=== PATIENT | male | born 1965 | race Caucasian/White ===

== ENCOUNTER 2022-07-16 17:02 | Inpatient (IN) | payer BC ==
[2022-07-16] MEDS ORDERED: Ondansetron PF 4 MG/2 ML Vial ONE (17:39)
[2022-07-16] MEDS ORDERED: Magnesium 2 GM/50 ML BAG (IN WATER) ONE (17:39)
[2022-07-16] MEDS ORDERED: Enoxaparin Sodium 60 MG/0.6 ML SYRINGE ONE (18:02)
[2022-07-16 18:14] LABS: #Eosinphils 0.2 thou/uL (0.0-0.7); #Lymphocytes 2.6 thou/uL (1.20-3.40); #Monocytes 0.7 thou/uL (0.11-0.59); #Neutrophils 2.1 thou/uL (1.40-6.50); %Basophils 0.3 % (0.0-1.0); %Eosinophils 2.9 % (0.0-10.0); %Lymphocytes 46.1 % (21.0-51.0); %Monocytes 12.8 % (0.0-10.0); %Neutrophils 37.9 % (42.0-75.0); Hemoglobin 15.4 g/dL (14.0-18.0); Mean Platelet Volume 8.7 fL (7.4-10.4); Platelet Count 180 thou/uL (130-400); RBC Distribution Width 12.9 % (11.5-14.5); Red Blood Cell (RBC) Count 5.15 mill/uL (4.70-6.10); White Blood Cell (WBC) Count 5.5 thou/uL (4.8-10.8)
[2022-07-16] MEDS ORDERED: Metoprolol Tartrate 5 MG/5 ML VIAL ONE (18:16)
[2022-07-16 18:42] LABS: ALT (SGPT) 33 U/L (8-55); AST (SGOT) 41 U/L (5-34); Albumin 4.1 g/dL (3.5-5.0); Alkaline Phosphatase 67 U/L (40-110); Anion Gap 13 mmol/L (10-20); BUN (Urea Nitrogen) 16 mg/dL (8.4-25.7); Bilirubin, Total 0.6 mg/dL (0.2-1.2); Calc. Creatinine Clearance 0 mL/min (70-130); Calcium 8.9 mg/dL (7.8-10.44); Carbon Dioxide 23 mmol/L (22-29); Chloride 108 mmol/L (98-107); Estimated GFR 74; Globulin 4.4 g/dL (2.4-3.5); Glucose 89 mg/dL (70-105); Magnesium 2.2 mg/dL (1.6-2.6); Potassium 5.2 mmol/L (3.5-5.1); Protein, Total 8.5 g/dL (6.0-8.3); Sodium 139 mmol/L (136-145)
[2022-07-16 18:46] LABS: INR-International Normal Ratio 1.1; Prothrombin Time 14.8 sec (12.0-14.7)
[2022-07-16 18:47] LABS: PTT 40.7 sec (22.9-36.1)
[2022-07-16 18:49] LABS: D-Dimer Test 0.56 *mcg/mL (0.27-0.43)
[2022-07-16] MEDS ORDERED: Ondansetron PF 4 MG/2 ML Vial IVP PRN (21:20)
[2022-07-16] MEDS ORDERED: Acetaminophen 325 MG TAB PO PRN (21:20)
[2022-07-16 23:13] VITALS: BMI 36.6
[2022-07-17 05:17] LABS: INR-International Normal Ratio 1.1; Prothrombin Time 13.9 sec (12.0-14.7)
[2022-07-17 05:18] LABS: PTT 38.6 sec (22.9-36.1)
[2022-07-17 05:25] LABS: Anion Gap 10 mmol/L (10-20); BUN (Urea Nitrogen) 13 mg/dL (8.4-25.7); Calc. Creatinine Clearance 166 mL/min (70-130); Calcium 8.5 mg/dL (7.8-10.44); Carbon Dioxide 23 mmol/L (22-29); Chloride 109 mmol/L (98-107); Estimated GFR 100; Glucose 88 mg/dL (70-105); Magnesium 2.2 mg/dL (1.6-2.6); Potassium 3.8 mmol/L (3.5-5.1); Sodium 138 mmol/L (136-145)
[2022-07-17 06:16] LABS: Eosinophils 2 % (0-10); Hemoglobin 14.7 g/dL (14.0-18.0); Lymphocytes 59 % (21-51); MDiff Complete? YES; Mean Corpuscular HGB CONC 33.6 g/dL (32.0-36.0); Mean Corpuscular Hemoglobin 31.1 pg (27.0-31.0); Mean Corpuscular Volume 92.7 fL (78.0-98.0); Mean Platelet Volume 8.6 fL (7.4-10.4); Monocytes 5 % (0-10); Neutrophil 34 % (42-75); Platelet Count 159 thou/uL (130-400); Platelet Morphology Comment Appears Adequate; RBC Distribution Width 12.7 % (11.5-14.5); RBC Morphology Normal; Red Blood Cell (RBC) Count 4.71 mill/uL (4.70-6.10); White Blood Cell (WBC) Count 4.9 thou/uL (4.8-10.8)
[2022-07-17] MEDS ORDERED: Enoxaparin Sodium 100 MG/ML SYRINGE SC SCH (09:00)
[2022-07-17] MEDS: Metoprolol Tartrate 25 MG TAB PO SCH ×2 (09:08→20:36)
[2022-07-17] MEDS: Loratadine/Pseudoephedrine 10/240 mg Tablet PO SCH ×2 (09:08→20:36)
[2022-07-17] MEDS: Aspirin 81 mg Enteric Coated Tablet PO SCH (09:08)
[2022-07-17] MEDS ORDERED: Enoxaparin Sodium 120 MG/0.8 ML SYRINGE SC SCH (21:00)
[2022-07-18] MEDS ORDERED: PROPOFOL 20 ML ONE (08:11)
[2022-07-18] MEDS ORDERED: Promethazine HCl 25 MG/ML VIAL IM PRN (08:25)
[2022-07-18] MEDS ORDERED: Ondansetron HCl/PF 4 MG/2 ML Vial IVP PRN (08:25)
[2022-07-18] MEDS ORDERED: Promethazine HCl 25 MG/ML VIAL IVPB PRN (08:25)
[2022-07-18] MEDS ORDERED: Apixaban 5 MG TAB PO SCH (09:00)
[2022-07-18] MEDS: Aspirin 81 mg Enteric Coated Tablet PO SCH (09:42)
[2022-07-18 11:56] VITALS: BP 105/55; TEMP 98.1
== END 2022-07-18 14:35 | disposition home or self-care (01) | DRG 310 ==
LOC: ERS 17:02 → 2SW 21:07 → OBSVTOIN 07-17 14:53
PROVIDERS: ADMIT Internal Medicine; ATTEND Internal Medicine
PROC: 5A2204Z Restoration of Cardiac Rhythm, Single (ICD-10-PCS; principal; 2022-07-18)
PROC: B246ZZ4 Ultrasonography of Right and Left Heart, Transesophageal (ICD-10-PCS; 2022-07-18)
DX: I48.91 Unspecified atrial fibrillation (principal); I10 Essential (primary) hypertension; M06.9 Rheumatoid arthritis, unspecified; E87.5 Hyperkalemia; E66.9 Obesity, unspecified; I08.1 Rheumatic disorders of both mitral and tricuspid valves; Z20.822 Contact with and (suspected) exposure to COVID-19; Z79.899 Other long term (current) drug therapy; Z68.37 Body mass index [BMI] 37.0-37.9, adult
CPT/HCPCS: 36415; 71045; 80048; 80053; 83735; 83880; 84443; 84484; 85025; 85379; 85610; 85730; 92960; 93005; 93306; 93312; J1650; J2405; J2704; J3475; U0003; U0005

== ENCOUNTER 2022-09-21 19:00 | Outpatient (CLI) | payer BC | END 2022-09-21 19:01 | disposition home or self-care (01) | LOC: SLEEPLAB 19:00 | PROVIDERS: ATTEND Nurse Practitioner Family | DX: G47.33 Obstructive sleep apnea (adult) (pediatric) (principal); R06.83 Snoring; G47.10 Hypersomnia, unspecified; I10 Essential (primary) hypertension; G47.00 Insomnia, unspecified; I48.91 Unspecified atrial fibrillation; R00.1 Bradycardia, unspecified | CPT/HCPCS: 95810 ==

== ENCOUNTER 2023-01-14 19:00 | Outpatient (CLI) | payer BC | END 2023-01-14 19:01 | disposition home or self-care (01) | LOC: SLEEPLAB 19:00 | PROVIDERS: ATTEND Nurse Practitioner Family | DX: G47.33 Obstructive sleep apnea (adult) (pediatric) (principal); R53.83 Other fatigue; E66.9 Obesity, unspecified; I49.9 Cardiac arrhythmia, unspecified; R06.83 Snoring; G47.10 Hypersomnia, unspecified; Z68.36 Body mass index [BMI] 36.0-36.9, adult | CPT/HCPCS: 95811 ==

== ENCOUNTER 2023-02-24 08:36 | Day surgery (SDC) | payer BC ==
[2023-02-20 12:52] VITALS: BMI 37.5
[2023-02-24] MEDS ORDERED: Heparin 10,000 UNITS/ 10 ML VIAL ONE ×2 (09:10→12:07)
[2023-02-24] MEDS ORDERED: Protamine Sulfate 50 MG/5 ML VIAL ONE (09:10)
[2023-02-24] MEDS ORDERED: Heparin 25,000 units/D5W 500 ML ONE (09:10)
[2023-02-24] MEDS ORDERED: fentaNYL 50 mcg/mL 1 mL Vial ONE ×4 (09:35→14:51)
[2023-02-24] MEDS ORDERED: Midazolam HCl 2 mg/2 ml Vial ONE (09:36)
[2023-02-24] MEDS ORDERED: Iopamidol 370 76% 100 ML VIAL ONE (09:58)
[2023-02-24] MEDS ORDERED: Dehydrated Alcohol 99% 5 ML VIAL ONE (10:00)
[2023-02-24] MEDS ORDERED: PROPOFOL 200 MG/20 ML VIAL ONE (10:09)
[2023-02-24] MEDS ORDERED: PHENYLEPHRINE-NS 100 MCG/ML 10 ML SYRINGE ONE (10:09)
[2023-02-24] MEDS ORDERED: Dexamethasone 20 MG/5 ML VIAL ONE (10:09)
[2023-02-24] MEDS ORDERED: Lidocaine 1% PF 5 ML VIAL ONE (10:09)
[2023-02-24] MEDS ORDERED: Rocuronium Bromide 10 MG/ML (10ML VIAL) ONE (10:09)
[2023-02-24] MEDS ORDERED: Ondansetron PF 4 MG/2 ML Vial ONE (10:09)
== END 2023-02-24 16:28 | disposition home or self-care (01) ==
LOC: SDC 08:36
PROVIDERS: ATTEND Internal Medicine Cardiovascular Disease
PROC: 02583ZZ Destruction of Conduction Mechanism, Percutaneous Approach (ICD-10-PCS; principal; 2023-02-24)
PROC: 4A0234Z Measurement of Cardiac Electrical Activity, Percutaneous Approach (ICD-10-PCS; principal; 2023-02-24)
PROC: 4A023FZ Measurement of Cardiac Rhythm, Percutaneous Approach (ICD-10-PCS; principal; 2023-02-24)
PROC: 02K83ZZ Map Conduction Mechanism, Percutaneous Approach (ICD-10-PCS; principal; 2023-02-24)
PROC: B246ZZ4 Ultrasonography of Right and Left Heart, Transesophageal (ICD-10-PCS; principal; 2023-02-24)
DX: I48.19 Other persistent atrial fibrillation (principal); I08.1 Rheumatic disorders of both mitral and tricuspid valves; E78.00 Pure hypercholesterolemia, unspecified; G47.33 Obstructive sleep apnea (adult) (pediatric); Z79.01 Long term (current) use of anticoagulants; Z79.620 Long term (current) use of immunosuppressive biologic; Z79.899 Other long term (current) drug therapy
CPT/HCPCS: 85347; 93005; 93312; 93656; 93657; C1725; C1732; C1751; C1759; C1760; C1769; C1887; C1894; C2630; J1100; J1644; J2250; J2405; J2704; J2720; J3010; Q9967

== ENCOUNTER 2023-02-28 01:17 | Inpatient (IN) | payer BC ==
[2023-02-28] MEDS ORDERED: Acetaminophen 500 MG TAB ONE (01:34)
[2023-02-28] MEDS ORDERED: Cefepime 2 GM VIAL ONE (01:43)
[2023-02-28] MEDS ORDERED: Aspirin Chewable 81 MG TAB ONE (01:43)
[2023-02-28] MEDS ORDERED: Nitroglycerin 2% Ointment 1 INCH/1 GM Packet ONE (01:46)
[2023-02-28] MEDS ORDERED: Ondansetron PF 4 MG/2 ML Vial ONE (01:49)
[2023-02-28] MEDS ORDERED: Morphine 4 MG/ML VIAL ONE (01:49)
[2023-02-28 02:00] LABS: #Eosinphils 0.1 thou/uL (0.0-0.7); #Lymphocytes 1.8 thou/uL (1.20-3.40); #Monocytes 1.1 thou/uL (0.11-0.59); #Neutrophils 7.5 thou/uL (1.40-6.50); %Basophils 0.1 % (0.0-1.0); %Eosinophils 0.6 % (0.0-10.0); %Lymphocytes 17.4 % (21.0-51.0); %Monocytes 10.8 % (0.0-10.0); Hemoglobin 13.1 g/dL (14.0-18.0); Mean Corpuscular Hemoglobin 30.7 pg (27.0-31.0); Mean Corpuscular Volume 87.9 fl (78.0-98.0); Mean Platelet Volume 8.7 fL (7.4-10.4); Platelet Count 160 10x3/uL (130-400); RBC Distribution Width 12.4 % (11.5-14.5); Red Blood Cell (RBC) Count 4.25 mill/uL (4.70-6.10); White Blood Cell (WBC) Count 10.5 10x3/uL (4.8-10.8)
[2023-02-28] MEDS ORDERED: VANCOMYCIN 2 GRAM/500 ML BAG 2 GM in Premix Bag 1 BAG IVPB SCH (02:00)
[2023-02-28 02:16] LABS: ALT (SGPT) 40 U/L (8-55); AST (SGOT) 35 U/L (5-34); Alkaline Phosphatase 73 U/L (40-110); Anion Gap 13 mmol/L (10-20); BUN (Urea Nitrogen) 12 mg/dL (8.4-25.7); Bilirubin, Total 0.6 mg/dL (0.2-1.2); Calc. Creatinine Clearance 0 mL/min (70-130); Calcium 8.8 mg/dL (7.8-10.44); Carbon Dioxide 22 mmol/L (22-29); Chloride 103 mmol/L (98-107); Estimated GFR 70; Globulin 3.8 g/dL (2.4-3.5); Glucose 152 mg/dL (70-105); Potassium 3.7 mmol/L (3.5-5.1); Protein, Total 7.8 g/dL (6.0-8.3); Sodium 134 mmol/L (136-145)
[2023-02-28 02:42] LABS: SARS-CoV-2 NAA Rapid Test Not Detected (NotDetected)
[2023-02-28 02:51] LABS: CKMB 0.5 ng/mL (0-6.6)
[2023-02-28 03:00] LABS: INR-International Normal Ratio 1.2; Prothrombin Time 15.6 sec (12.0-14.7)
[2023-02-28 03:01] LABS: PTT 32.6 sec (22.9-36.1)
[2023-02-28 04:31] VITALS: BMI 38.9
[2023-02-28] MEDS ORDERED: Ondansetron ODT 4 MG TAB PO PRN (05:02)
[2023-02-28] MEDS ORDERED: Calcium Carbonate 500 MG ChewTAB PO PRN (05:02)
[2023-02-28 05:14] LABS: Critical Call Chem Troponin I RESULT DECREASING; Troponin I 0.603 ng/mL (< 0.028)
[2023-02-28] MEDS: Acetaminophen 325 MG TAB PO PRN ×3 (05:53→21:02)
[2023-02-28 08:13] LABS: Critical Call Chem Troponin I RESULT DECREASING; Troponin I 0.492 ng/mL (< 0.028)
[2023-02-28] MEDS: Rosuvastatin 20 MG TAB PO SCH (08:52)
[2023-02-28] MEDS: Dronedarone HCl 400 MG TAB PO SCH ×2 (08:55→16:51)
[2023-02-28] MEDS: Apixaban 5 MG TAB PO SCH ×2 (08:55→21:02)
[2023-02-28] MEDS: Famotidine 20 MG TAB PO SCH ×2 (08:56→21:02)
[2023-02-28] MEDS ORDERED: Vancomycin 1.5 GRAM/300 ML BAG IVPB SCH (09:00)
[2023-02-28] MEDS: cefTRIAXone\\ROCEPHIN 2 GM in Sodium Chloride 0.9% 100 ML IVPB SCH (09:52)
[2023-02-28] MEDS ORDERED: Iopamidol 370 76% 100 ML VIAL ONE (12:10)
[2023-02-28] MEDS: VANCOMYCIN 2 GRAM/500 ML BAG 2 GM in Premix Bag 1 BAG IVPB SCH (14:47)
[2023-02-28] MEDS: Senokot S 8.6-50 MG TAB PO PRN (16:51)
[2023-03-01] MEDS ORDERED: Sodium Chloride 0.9% 250 ML IV SCH (00:15)
[2023-03-01] MEDS ORDERED: Sodium Chloride 0.9% 250 ML 250 ML IV SCH (00:45)
[2023-03-01] MEDS: VANCOMYCIN 2 GRAM/500 ML BAG 2 GM in Premix Bag 1 BAG IVPB SCH ×2 (03:05→13:46)
[2023-03-01 05:15] LABS: BUN (Urea Nitrogen) 8 mg/dL (8.4-25.7); Calc. Creatinine Clearance 172 mL/min (70-130); Calcium 8.6 mg/dL (7.8-10.44); Carbon Dioxide 13 mmol/L (22-29); Chloride 110 mmol/L (98-107); Estimated GFR 97; Glucose 84 mg/dL (70-105); Magnesium 2.1 mg/dL (1.6-2.6); Potassium 4.4 mmol/L (3.5-5.1); Sodium 134 mmol/L (136-145)
[2023-03-01 05:20] LABS: Anion Gap 15 mmol/L (10-20)
[2023-03-01 07:53] LABS: Eosinophils 1 % (0-10); Hypochromia SLIGHT = 6-15 cells (100X) (0-5/hpf); Lymphocytes 22 % (21-51); MDiff Complete? YES; Mean Corpuscular HGB CONC 30.3 g/dL (32.0-36.0); Mean Corpuscular Hemoglobin 28.9 pg (27.0-31.0); Mean Corpuscular Volume 95.4 fl (78.0-98.0); Mean Platelet Volume 10.7 fL (7.4-10.4); Monocytes 8 % (0-10); Neutrophil 66 % (42-75); Platelet Count 114 10x3/uL (130-400); Platelet Morphology Comment Appears Decreased; Polychromasia SLIGHT = 2-3 cells (100X) (0-2/hpf); RBC Distribution Width 12.8 % (11.5-14.5); Reactive Lymphocytes 3 % (0-10); Red Blood Cell (RBC) Count 4.17 mill/uL (4.70-6.10); White Blood Cell (WBC) Count 8.4 10x3/uL (4.8-10.8)
[2023-03-01] MEDS: Dronedarone HCl 400 MG TAB PO SCH ×2 (08:35→16:01)
[2023-03-01] MEDS: Apixaban 5 MG TAB PO SCH ×2 (08:35→20:39)
[2023-03-01] MEDS: Rosuvastatin 20 MG TAB PO SCH (08:35)
[2023-03-01] MEDS: Famotidine 20 MG TAB PO SCH (08:36)
[2023-03-01] MEDS: cefTRIAXone\\ROCEPHIN 2 GM in Sodium Chloride 0.9% 100 ML IVPB SCH (08:36)
[2023-03-01 08:55] LABS: Lactic Acid 0.8 mmol/L (0.5-2.2)
[2023-03-01] MEDS ORDERED: Diltiazem 125 MG in Sodium Chloride 0.9% 100 ML IVPB SCH (12:15)
[2023-03-01 13:38] LABS: Vancomycin, Trough 10.9 ug/mL
[2023-03-01] MEDS: VANCOMYCIN 1.75 GM/500 ML BAG 1.75 GM in Premix Bag 1 BAG IVPB SCH (14:21)
[2023-03-01] MEDS: Sodium Bicarbonate Tab 325 MG TAB PO SCH ×2 (14:26→20:39)
[2023-03-01 19:12] LABS: Anion Gap 13 mmol/L (10-20); BUN (Urea Nitrogen) 10 mg/dL (8.4-25.7); Calc. Creatinine Clearance 153 mL/min (70-130); Calcium 8.8 mg/dL (7.8-10.44); Carbon Dioxide 19 mmol/L (22-29); Chloride 107 mmol/L (98-107); Estimated GFR 86; Glucose 139 mg/dL (70-105); Potassium 3.7 mmol/L (3.5-5.1); Sodium 135 mmol/L (136-145)
[2023-03-01] MEDS: Senokot S 8.6-50 MG TAB PO PRN (20:42)
[2023-03-02] MEDS: VANCOMYCIN 1.75 GM/500 ML BAG 1.75 GM in Premix Bag 1 BAG IVPB SCH ×2 (01:51→14:29)
[2023-03-02 04:52] LABS: Anion Gap 11 mmol/L (10-20); BUN (Urea Nitrogen) 10 mg/dL (8.4-25.7); Calc. Creatinine Clearance 156 mL/min (70-130); Calcium 8.6 mg/dL (7.8-10.44); Carbon Dioxide 23 mmol/L (22-29); Chloride 106 mmol/L (98-107); Estimated GFR 88; Glucose 100 mg/dL (70-105); Potassium 3.8 mmol/L (3.5-5.1); Sodium 136 mmol/L (136-145)
[2023-03-02] MEDS ORDERED: Furosemide 20 MG/2 ML VIAL SLOW IVP SCH (08:45)
[2023-03-02] MEDS ORDERED: Potassium Chloride 20 MEQ TAB PO SCH (08:45)
[2023-03-02] MEDS: Rosuvastatin 20 MG TAB PO SCH (09:52)
[2023-03-02] MEDS: Apixaban 5 MG TAB PO SCH (09:52)
[2023-03-02] MEDS: Dronedarone HCl 400 MG TAB PO SCH ×2 (09:52→17:04)
[2023-03-02] MEDS: cefTRIAXone\\ROCEPHIN 2 GM in Sodium Chloride 0.9% 100 ML IVPB SCH (10:06)
[2023-03-02 17:03] VITALS: BP 116/68; TEMP 98.6
== END 2023-03-02 17:12 | disposition home or self-care (01) | DRG 871 ==
LOC: ERS 01:17 → 2NO 03:48 → OBSVTOIN 03-01 16:16
PROVIDERS: ADMIT Internal Medicine; ATTEND Internal Medicine
DX: A41.9 Sepsis, unspecified organism (principal); J18.9 Pneumonia, unspecified organism; I97.89 Other postprocedural complications and disorders of the circulatory system, not elsewhere classified; I48.19 Other persistent atrial fibrillation; E87.20 Acidosis, unspecified; I50.22 Chronic systolic (congestive) heart failure; I48.4 Atypical atrial flutter; I31.9 Disease of pericardium, unspecified; Z20.822 Contact with and (suspected) exposure to COVID-19; Y95 Nosocomial condition; I10 Essential (primary) hypertension; G47.33 Obstructive sleep apnea (adult) (pediatric); E78.5 Hyperlipidemia, unspecified; M06.9 Rheumatoid arthritis, unspecified; E78.00 Pure hypercholesterolemia, unspecified; Y83.8 Other surgical procedures as the cause of abnormal reaction of the patient, or of later complication, without mention of misadventure at the time of the procedure; Z79.899 Other long term (current) drug therapy; Z79.01 Long term (current) use of anticoagulants
CPT/HCPCS: 36415; 71045; 71275; 74177; 80048; 80053; 80202; 82553; 83605; 83735; 83880; 84443; 84484; 85025; 85610; 85652; 85730; 86140; 87040; 87081; 93005; 93306; 96365; 96366; 96367; 96372; 96375; 96376; G0378; J0692; J0696; J1650; J1940; J2270; J2405; J3370; J3490; J7050; Q9967

== ENCOUNTER 2024-08-01 05:28 | Day surgery (SDC) | payer BC ==
[2024-07-29 11:37] VITALS: BMI 37.4
[2024-08-01 06:19] LABS: #Basophils 0.03 10x3/uL (0.0-0.2); %Basophils 0.3 % (0.0-1.0); %Eosinophils 1.4 % (0.0-10.0); %Lymphocytes 33.7 % (21.0-51.0); %Neutrophils 53.3 % (42.0-75.0); Hematocrit 43.8 % (42.0-52.0); Hemoglobin 14.5 g/dL (14.0-18.0); Mean Corpuscular HGB CONC 33.1 g/dL (32.0-36.0); Mean Corpuscular Hemoglobin 29.4 pg (27.0-31.0); Mean Corpuscular Volume 88.7 fL (78.0-98.0); Platelet Count 201 10x3/uL (130-400); RBC Distribution Width 13.2 % (11.5-14.5); Red Blood Cell (RBC) Count 4.94 mill/uL (4.70-6.10)
[2024-08-01 06:34] LABS: Anion Gap 14 mmol/L (10-20); BUN (Urea Nitrogen) 13 mg/dL (8.4-25.7); Calc. Creatinine Clearance 118 mL/min (70-130); Calcium 9.3 mg/dL (7.8-10.44); Carbon Dioxide 25 mmol/L (22-29); Chloride 105 mmol/L (98-107); Estimated GFR 68; Glucose 103 mg/dL (70-105); Potassium 4.3 mmol/L (3.5-5.1); Sodium 140 mmol/L (136-145)
[2024-08-01] MEDS ORDERED: Etomidate 40 MG (20 mL) VIAL ONE (07:19)
[2024-08-01] MEDS ORDERED: Lidocaine 1% (PF) 30 ML VIAL ONE (07:19)
[2024-08-01] MEDS ORDERED: PHENYLEPHRINE-NS 100 MCG/ML 10 ML SYRINGE ONE (07:32)
[2024-08-01] MEDS ORDERED: PROPOFOL 40 ML ONE (07:32)
[2024-08-01] MEDS ORDERED: PROPOFOL 20 ML ONE (08:11)
== END 2024-08-01 10:00 | disposition home or self-care (01) ==
LOC: SDC 05:28
PROVIDERS: ATTEND Internal Medicine Cardiovascular Disease
PROC: 5A2204Z Restoration of Cardiac Rhythm, Single (ICD-10-PCS; principal; 2024-08-01)
PROC: B246ZZ4 Ultrasonography of Right and Left Heart, Transesophageal (ICD-10-PCS; principal; 2024-08-01)
DX: I48.0 Paroxysmal atrial fibrillation (principal); I36.1 Nonrheumatic tricuspid (valve) insufficiency; M06.9 Rheumatoid arthritis, unspecified; G47.33 Obstructive sleep apnea (adult) (pediatric); E78.2 Mixed hyperlipidemia; Z79.01 Long term (current) use of anticoagulants; Z79.899 Other long term (current) drug therapy
CPT/HCPCS: 36415; 80048; 85025; 92960; 93005; 93010; 93312; J2001; J2704

== ENCOUNTER 2024-08-22 13:36 | Outpatient (CLI) | payer BC | END 2024-08-22 13:37 | disposition home or self-care (01) | LOC: ULT 13:36 | PROVIDERS: ATTEND Internal Medicine Cardiovascular Disease | DX: I48.0 Paroxysmal atrial fibrillation (principal) ==